=== PATIENT | female | born 1975 ===

== ENCOUNTER 2021-08-04 11:14 | Emergency (ER) ==
[~2021-08-04] VITALS: Ht 157.5 cm; Wt 89.4 kg
[2021-08-04] MEDS ORDERED: SODIUM CHLORIDE 0.9% 100 ML ONE (11:34)
[2021-08-04] MEDS ORDERED: CASIRIVIMAB/IMDEVIMAB 10 ML in SODIUM CHLORIDE 0.9% 100 ML IV ONE (12:15)
== END 2021-08-04 13:04 | disposition home or self-care (01) ==
LOC: ER 11:21
DX: R05 Cough (principal); U07.1 COVID-19; E11.9 Type 2 diabetes mellitus without complications; I10 Essential (primary) hypertension; E78.5 Hyperlipidemia, unspecified; F17.210 Nicotine dependence, cigarettes, uncomplicated
CPT/HCPCS: 99283; J7050